=== PATIENT | female | born 1980 | race Caucasian/White ===

== ENCOUNTER 2017-03-12 08:18 | Emergency (ER) | payer OTHER ==
[2017-03-12 08:23] VITALS: BP 127/91
== END 2017-03-12 09:37 | disposition home or self-care (01) ==
LOC: ED 08:18
DX: S83.004A Unspecified dislocation of right patella, initial encounter (principal); X58.XXXA Exposure to other specified factors, initial encounter; Y93.89 Activity, other specified; Y99.8 Other external cause status; Y92.89 Other specified places as the place of occurrence of the external cause
CPT/HCPCS: Q0092

== ENCOUNTER 2017-05-21 23:37 | Emergency (ER) | payer OTHER ==
[2017-05-21 23:49] VITALS: BP 128/86
== END 2017-05-22 00:57 | disposition left against medical advice (07) ==
LOC: ED 23:37
DX: Z53.21 Procedure and treatment not carried out due to patient leaving prior to being seen by health care provider (principal)

== ENCOUNTER 2017-08-22 09:41 | Emergency (ER) | payer OTHER ==
[2017-08-22 09:51] VITALS: BP 116/84
== END 2017-08-22 10:23 | disposition home or self-care (01) ==
LOC: ED 09:41
DX: S06.0X0A Concussion without loss of consciousness, initial encounter (principal); J45.909 Unspecified asthma, uncomplicated; W20.8XXA Other cause of strike by thrown, projected or falling object, initial encounter; Y93.89 Activity, other specified; Y99.8 Other external cause status; Y92.89 Other specified places as the place of occurrence of the external cause

== ENCOUNTER 2017-09-04 20:32 | Emergency (ER) | payer OTHER ==
[2017-09-04 20:34] VITALS: BP 128/102
== END 2017-09-04 22:19 | disposition left against medical advice (07) ==
LOC: ED 20:32
DX: R51 Headache (principal); J45.909 Unspecified asthma, uncomplicated; F41.9 Anxiety disorder, unspecified; Z53.20 Procedure and treatment not carried out because of patient's decision for unspecified reasons

== ENCOUNTER 2017-09-05 16:47 | Emergency (ER) | payer OTHER ==
[~2017-09-05] VITALS: Ht 162.6 cm; Wt 110.2 kg
[2017-09-05 18:55] VITALS: BP 115/77
== END 2017-09-05 18:55 | disposition home or self-care (01) ==
LOC: ED 16:47
DX: F07.81 Postconcussional syndrome (principal); G44.309 Post-traumatic headache, unspecified, not intractable; J45.909 Unspecified asthma, uncomplicated